=== PATIENT | female | born 1990 | race Caucasian/White ===

== ENCOUNTER 2017-08-25 05:12 | Emergency (ER) | payer BC ==
[~2017-08-25] VITALS: Ht 177.8 cm; Wt 86.2 kg
--- NOTE | 2017-08-25 05:27 | NUR ---
Dr. Espinal at bedside for MSE.
[2017-08-25] MEDS ORDERED: IV NORMAL SALINE 1000 ML BAG IV ONE (05:30)
[2017-08-25] MEDS ORDERED: ONDANSETRON 4 MG/2 ML VIAL IV ONE (05:30)
[2017-08-25] MEDS ORDERED: ONDANSETRON 4 MG/2 ML VIAL ONE (05:35)
--- NOTE | 2017-08-25 05:50 | NUR ---
LAB AT PT BEDSIDE FOR BLOOD DRAW.
[2017-08-25 05:58] LABS: BASOPHILS % (AUTO) 0.2 % (0.0-2.0); EOSINOPHILS # (AUTO) 0.1 K/uL (0.0-0.7); EOSINOPHILS % (AUTO) 0.5 % (0.0-7.0); HEMATOCRIT 43.3 % (31.2-41.9); HEMOGLOBIN 15.2 g/dL (10.9-14.3); LYMPHOCYTES # (AUTO) 0.6 K/uL (20.0-40.0); LYMPHOCYTES % (AUTO) 3.8 % (20.5-51.5); MEAN CORPUSCULAR HEMOGLOBIN 30.7 uug (24.7-32.8); MEAN CORPUSCULAR HGB CONC 35 g/dL (32.3-35.6); MEAN CORPUSCULAR VOLUME 87.4 fL (75.5-95.3); MONOCYTES # (AUTO) 0.8 K/uL (2.0-10.0); MONOCYTES % (AUTO) 4.9 % (0.0-11.0); NEUTROPHILS # (AUTO) 14.1 K/uL (1.8-8.9); NEUTROPHILS % (AUTO) 90.6 % (38.5-71.5); PLATELET COUNT (AUTO) 167 K/uL (179-408); RED BLOOD CELL COUNT(AUTO) 4.96 MIL/uL (3.63-4.92); WHITE BLOOD COUNT (AUTO) 15.6 K/uL (3.8-11.8)
--- NOTE | 2017-08-25 05:58 | NUR ---
[id number]. PT AMBULATED TO ER C/O NAUSEA + VOMITING SINCE 2199 LAST NIGHT 08/24/17. PT STATED SHE ATE PIZZA AND SALAD BEFOREHAND. RESPIRATIONS EVEN AND UNLABORED. PT DENIES COUGH/CONGESTION. PT DENIES CHEST PAIN. PT DENIES FEVER/CHILLS.
[2017-08-25 06:20] LABS: BILIRUBIN,DIRECT 0.2 mg/dL (0.0-0.2); CREATININE 0.9 mg/dL (0.6-1.3)
--- NOTE | 2017-08-25 06:30 | NUR ---
PT GIVEN PO CHALLENGE. WELL TOLERATED BY PT. DENIES ANY NAUSEA/VOMTIING.
--- NOTE | 2017-08-25 06:31 | NUR ---
DR. ALONDRA HARDY MD AT BEDSIDE FOR RE-ASSESSMENT
[2017-08-25 06:43] VITALS: BP 122/74
--- NOTE | 2017-08-25 06:53 | NUR ---
Patient discharged to home in stable conditon. Written and verbal after care instructions given. Patient verbalizes understanding of instructions. Patient left ER and walks in steady gait. Pt denies any nausea/vomiting at this time. No acute distress noted.
== END 2017-08-25 06:55 | disposition home or self-care (01) ==
LOC: ER 05:23
DX: R11.2 Nausea with vomiting, unspecified (principal); R19.7 Diarrhea, unspecified; Z90.89 Acquired absence of other organs; Z88.2 Allergy status to sulfonamides
CPT/HCPCS: 36415; 80048; 80076; 83690; 84703; 85025; 96361; 96374; 99284; A4663 ×2; J2405; J7030 ×2